=== PATIENT | male | born 1975 | race Caucasian/White ===

== ENCOUNTER 2018-10-29 09:54 | Emergency (ER) | payer MEDICAID ==
[~2018-10-29] VITALS: Ht 182.9 cm; Wt 82.6 kg
[2018-10-29 10:16] VITALS: Ht 182.9 cm; Wt 82.6 kg
[2018-10-29 11:00] VITALS: BP 129/78
== END 2018-10-29 13:05 | disposition home or self-care (01) ==
LOC: ED 09:54
DX: L23.7 Allergic contact dermatitis due to plants, except food (principal); I10 Essential (primary) hypertension
CPT/HCPCS: J0171; J1200; J2930; J3010